=== PATIENT | male | born 1970 | race Caucasian/White ===

== ENCOUNTER 2024-07-04 06:13 | Day surgery (SDC) | payer OTHER ==
[2024-07-01 14:54] VITALS: BMI 27.8
[2024-07-04] MEDS ORDERED: BUPIVACAINE HCL/PF 0.25% (2.5MG/ML) 10 ML VIAL ONE (07:20)
[2024-07-04] MEDS ORDERED: BACITRACIN ZINC 15 GM TUBE TOPICAL OINTMENT ONE (07:20)
[2024-07-04] MEDS ORDERED: PROPOFOL 20 ML ONE (07:33)
[2024-07-04] MEDS ORDERED: MIDAZOLAM HCL 2 MG/2 ML SINGLE DOSE VIAL ONE (07:33)
[2024-07-04] MEDS ORDERED: ONDANSETRON 4 MG/2 ML VIAL IVPUSH PRN (08:33)
[2024-07-04] MEDS ORDERED: LACTATED RINGERS SOLUTION 1,000 ML IV SCH (08:45)
[2024-07-04] MEDS ORDERED: ceFAZolin SODIUM 1 GM VIAL ONE (08:51)
[2024-07-04] MEDS ORDERED: KETOROLAC TROMETHAMINE 30 MG/1 ML VIAL ONE (08:51)
[2024-07-04] MEDS ORDERED: DEXAMETHASONE SOD PHOSPHATE 4 MG/1 ML VIAL ONE (08:51)
[2024-07-04] MEDS: ACETAMINOPHEN 1000 MG/100 ML BAG IVPB ONE (09:45)
[2024-07-04] MEDS ORDERED: ACETAMINOPHEN INJECTION 100 ML ONE (09:52)
[2024-07-04 10:09] VITALS: RESP 16
[2024-07-04 12:34] VITALS: TEMP 96.7
[2024-07-04 12:56] VITALS: BP 124/88; PULSE 62
== END 2024-07-04 11:25 | disposition home or self-care (01) ==
LOC: FASU 06:13
PROVIDERS: ATTEND Urology
PROC: 0VB03ZX Excision of Prostate, Percutaneous Approach, Diagnostic (ICD-10-PCS; principal; 2024-07-04 09:00)
DX: R97.20 Elevated prostate specific antigen [PSA] (principal)
CPT/HCPCS: 76872-TC; 88305-TC; 88342-TC; 94760; J0131